=== PATIENT | male | born 1995 | race Caucasian/White ===

== ENCOUNTER 2017-07-24 17:05 | Emergency (ER) | payer BC ==
[2017-07-24 17:28] VITALS: BP 153/70
--- NOTE | 2017-07-24 18:21 | UC ---
Shoulder Pain HPI - HPI Summary HPI Summary: 22 yo male with LEFT great toe redness/swelling x 1 week no trauma - History of Current Complaint Chief Complaint: UCLowerExtremity Stated Complaint: SKIN CONCERN Time Seen by Provider: 07/24/17 18:01 Hx Obtained From: Patient Onset/Duration: Gradual Onset, Lasting Days Timing: Constant Severity Initially: Mild Severity Currently: Moderate Pain Intensity: 8 Pain Scale Used: 0-10 Numeric Character: Aching, Throbbing Aggravating Factor(s): Other - touch Alleviating Factor(s): Rest Associated Signs And Symptoms: Positive: Swelling, Redness - Allergies/Home Medications Allergies/Adverse Reactions: Allergies Allergy/AdvReac Type Severity Reaction Status Date / Time No Known Allergies Allergy Verified 07/24/17 17:28 PMH/Surg Hx/FS Hx/Imm Hx Previously Healthy: Yes - Surgical History Surgical History: None - Family History Known Family History: Positive: Hypertension, Other - positive FMH for URI - Social History Alcohol Use: None Substance Use Type: None Smoking Status (MU): Never Smoked Tobacco Review of Systems Constitutional: Negative Skin: Negative Eyes: Negative ENT: Negative Respiratory: Negative Cardiovascular: Negative Gastrointestinal: Negative Genitourinary: Negative Motor: Negative Neurovascular: Negative Musculoskeletal: Negative Neurological: Negative Psychological: Negative Is Patient Immunocompromised?: No All Other Systems Reviewed And Are Negative: Yes Physical Exam Triage Information Reviewed: Yes Appearance: Well-Appearing, No Pain Distress, Well-Nourished Vital Signs: Initial Vital Signs Temp 99.1 F 07/24/17 17:24 Pulse 71 07/24/17 17:24 Resp 16 07/24/17 17:24 BP 153/70 07/24/17 17:24 Pulse Ox 97 07/24/17 17:24 Vital Signs Reviewed: Yes Eyes: Positive: Conjunctiva Clear ENT: Positive: Hearing grossly normal, Uvula midline. Negative: Nasal congestion, Nasal drainage, Trismus, Muffled voice, Hoarse voice Neck: Positive: Supple, Nontender, No Lymphadenopathy Respiratory: Positive: Lungs clear, Normal breath sounds, No respiratory distress, No accessory muscle use Cardiovascular: Positive: RRR, No Murmur Musculoskeletal: Positive: ROM Intact Neurological: Positive: Alert Psychological Exam: Normal Skin Exam: Other - see image Procedures - Procedure Summary Procedure Summary: INCISION AND DRAINAGE of left great toe paronychia Time out sterile prep incised with 18 g needle 3 drops of slime pus expressed culture obtained sterile dressing applied - Incision and Drainage Site: left great toe Instrument(s): Needle Shoulder Course/Dx - Differential Dx/Diagnosis Provider Diagnoses: left great toe paronychia. left great toe cellulitis Discharge - Discharge Plan Condition: Stable Disposition: HOME Prescriptions: Cephalexin CAP* [Keflex CAP*] 500 mg PO QID #28 cap Patient Education Materials: Abscess (ED) Referrals: Non Staff,Doctor [Primary Care Provider] - Additional Instructions: warm soapy soaks 2-4 x day rest elevate recheck for worsening symptoms or if not markedly improved in 3 days a culture is pending you BP was high today may be due to pain see your MD in the next 2-3 months for recheck Images Feet (Multiple View): 1 - paronychia
--- NOTE | 2017-07-25 07:55 | UC ---
- Progress Note Progress Note: RN to call pt. + staph, sens pending. Continue antibiotic unless we notify otherwise.
== END 2017-07-24 18:19 | disposition home or self-care (01) ==
LOC: UCCORT 17:05
DX: L03.032 Cellulitis of left toe (principal); B95.61 Methicillin susceptible Staphylococcus aureus infection as the cause of diseases classified elsewhere; Z16.11 Resistance to penicillins; Z16.29 Resistance to other single specified antibiotic
CPT/HCPCS: 10060; 87070; 87077; 87186; 87205; 87640; 87641; 99212; G0463